=== PATIENT | male | born 1960 | race Caucasian/White ===

== ENCOUNTER → 2016-09-24 | Outpatient (CLI) | payer BC ==
[2016-09-24 09:08] LABS: INR 2.5 (<1.1); Prothrombin Time 24.2 sec (9.0-12.0)
[2016-09-24 09:27] LABS: Anion Gap 10 mmol/L; Blood Urea Nitrogen 17 mg/dL (9-20); Calcium 9.1 mg/dL (8.4-10.2); Carbon Dioxide 28 mmol/L (22-30); Chloride 102 mmol/L (98-107); Cholesterol 178 mg/dL (<200); Glucose 95 mg/dL (74-99); HDL Cholesterol 56 mg/dL (40-60); Non-African American GFR(MDRD) >60 (>60 ml/min/1.73 sqM); Potassium 4.4 mmol/L (3.5-5.1); Sodium 140 mmol/L (137-145); Triglycerides 109 mg/dL (<150)
== END | disposition home or self-care (01) ==
LOC: LABWHC1 08:33
PROVIDERS: ATTEND Internal Medicine
DX: E87.8 Other disorders of electrolyte and fluid balance, not elsewhere classified (principal); E78.2 Mixed hyperlipidemia; D68.8 Other specified coagulation defects
CPT/HCPCS: 36415; 80048; 80061; 85610

== ENCOUNTER → 2017-04-01 | Outpatient (CLI) | payer BC ==
[2017-04-01 08:41] LABS: CH 31.1; CHCM 31.9; HCT 44.9 % (39.0-53.0); HDW 2.06; MCH 30.6 pg (25.0-35.0); MCHC 31.3 g/dL (31.0-37.0); MCV 97.8 fL (80.0-100.0); Mean Platelet Volume 7.8; RBC 4.59 m/uL (4.30-5.90); RDW 13.3 % (11.5-15.5); WBC 5.4 k/uL (3.8-10.6)
[2017-04-01 08:48] LABS: INR 2.4 (<1.2); Prothrombin Time 23.5 sec (9.0-12.0)
[2017-04-01 10:31] LABS: ALT 53 U/L (21-72); AST 36 U/L (17-59); Alkaline Phosphatase 51 U/L (38-126); Anion Gap 11 mmol/L; Blood Urea Nitrogen 14 mg/dL (9-20); Calcium 9.4 mg/dL (8.4-10.2); Carbon Dioxide 25 mmol/L (22-30); Chloride 103 mmol/L (98-107); Cholesterol 168 mg/dL (<200); Glucose 86 mg/dL (74-99); HDL Cholesterol 61 mg/dL (40-60); Non-African American GFR(MDRD) >60 (>60 ml/min/1.73 sqM); Potassium 4.5 mmol/L (3.5-5.1); Sodium 139 mmol/L (137-145); Total Bilirubin 0.7 mg/dL (0.2-1.3); Total Protein 6.9 g/dL (6.3-8.2)
[2017-04-01 11:00] LABS: Prostate Specific Antigen 0.47 ng/mL (0.00-4.00)
== END | disposition home or self-care (01) ==
LOC: LABWHC1 07:41
PROVIDERS: ATTEND Internal Medicine
DX: I48.0 Paroxysmal atrial fibrillation (principal); Z13.220 Encounter for screening for lipoid disorders; Z12.9 Encounter for screening for malignant neoplasm, site unspecified
CPT/HCPCS: 36415; 80053; 80061; 84153; 85027; 85610

== ENCOUNTER 2018-01-03 18:33 | Emergency (ER) | payer BC ==
[2018-01-03 18:44] VITALS: BP 136/79; PULSE 79; RESP 18; TEMP 98.4
--- NOTE | 2018-01-03 19:58 | XR ---
EXAMINATION TYPE: XR knee complete RT DATE OF EXAM: 01/03/2018 COMPARISON: NONE HISTORY: Knee pain TECHNIQUE: 3 views FINDINGS: There is some spurring of the patella. I see no fracture nor dislocation. There is mild spu rring of the femoral and tibial condyles. There is no sign of joint effusion. IMPRESSION: Hypertrophic spurring without significant joint space narrowing. No fracture.
--- NOTE | 2018-01-03 20:32 | US ---
EXAMINATION TYPE: US venous doppler duplex LE RT DATE OF EXAM: 01/03/2018 8:28 PM COMPARISON: NONE CLINICAL HISTORY: Pain/swelling/bruising. SIDE PERFORMED: TECHNIQUE: The lower extremity deep venous system is examined utilizing real time linear array sonog jake with graded compression, doppler sonography and color-flow sonography. VESSELS IMAGED: External Iliac Vein (EIV) Common Femoral Vein Deep Femoral Vein Greater Saphenous Vein * Femoral Vein Popliteal Vein Small Saphenous Vein * Proximal Calf Veins (* superficial vessels) Right Leg: IMPRESSION: Normal exam. No evidence of deep venous thrombosis in the right leg.
--- NOTE | 2018-01-03 20:35 | ED ---
Extremity Problem HPI - General Chief complaint: Extremity Problem,Nontraumatic Stated complaint: Leg Swelling, poss blood clot Time Seen by Provider: 01/03/18 19:22 Source: patient Mode of arrival: wheelchair Limitations: no limitations - History of Present Illness Initial comments: Thisis a 57 year male with PMH of previous CVA on coumadin and recent right knee scope who presents to the ED for right knee swelling and bruising. Pt is accompanied by his . Pt has a knee arthroscopy performed by Dr. Urbina last . The procedure went without complications. Pt has had mild knee pain and swelling since the surgery. However, today noticed new bruising on the medial aspect of the right knee and though that the right lower leg looked more swollen then the other. She was worried about possible blood clot. Pt contacted Dr. Urbina's office who recommended they come to the ER for further evaluation and with f/u in Dr. Santillan office tomorrow. They stated they would evaluate for knee effusion at that appointment and would aspirate if needed. Pt denies increasing pain, overlying erythema of the right knee, limited ROM, calf pain/tenderness, erythema of the calf, parathesieas, numbness, tingling, loss of sensation of the LE, fever, chills, chest pain, shortness of breathe. - Related Data Allergies Allergy/AdvReac Type Severity Reaction Status Date / Time No Known Allergies Allergy Verified 01/03/18 18:44 Review of Systems ROS Statement: Those systems with pertinent positive or pertinent negative responses have been documented in the HPI. ROS Other: All systems not noted in ROS Statement are negative. Constitutional: Denies: fever, chills Respiratory: Denies: cough, dyspnea, wheezes Cardiovascular: Denies: chest pain Gastrointestinal: Denies: abdominal pain, nausea, vomiting, diarrhea, constipation Genitourinary: Denies: urgency, dysuria, frequency Musculoskeletal: Reports: as per HPI, joint swelling, arthralgia. Denies: back pain Skin: Reports: as per HPI Neurological: Denies: headache, numbness, paresthesias, abnormal gait Past Medical History Past Medical History: CVA/TIA, Hypertension Additional Past Medical History / Comment(s): stroke 1993 History of Any Multi-Drug Resistant Organisms: None Reported Past Surgical History: Orthopedic Surgery Additional Past Surgical History / Comment(s): eye surgery 1994 Past Psychological History: Anxiety Smoking Status: Former smoker Past Alcohol Use History: Rare Past Drug Use History: None Reported General Exam - General Exam Comments Initial Comments: General: The patient is awake and alert, in no distress, and does not appear acutely ill or toxic. Eye: Pupils are equal, round and reactive to light, extra-ocular movements are intact. No nystagmus. There is normal conjunctiva bilaterally. No signs of icterus. Ears, nose, mouth and throat: There are moist mucous membranes and no oral lesions. Neck: The neck is supple, there is no tenderness or JVD. Cardiovascular: There is a regular rate and rhythm. No murmur, rub or gallop is appreciated. Respiratory: Lungs are clear to auscultation, respirations are non-labored, breath sounds are equal. No wheezes, stridor, rales, or rhonchi. Musculoskeletal: No erythema of the right knee joint, there is mild soft tissue swelling and 2 small incisions with no signs of surrounding erythema or drainage , there is ecchymosis of the medial right knee. There is small circular bruise to the posterior right thigh. There is mild righ LE edema, no tenderness to palpation of the calf. Mild tenderness to palpation of the knee joint. Pt is able to actively and passively range right knee with minimal discomfort. Pt has full sensation of the LE b/l equally. +2 DP pulses b/l equally. No coolness of the LE b/l. Compartment are soft and compressible.5/5 strenght of the knee joint , hip and ankle. No evidence of pitting edema. Neurological: A&O x 3. CN II-XII intact, There are no obvious motor or sensory deficits. Coordination appears grossly intact. Speech is normal. Skin: Skin is warm and dry and no rashes or lesions are noted. Psychiatric: Cooperative, appropriate mood & affect, normal judgment. Limitations: no limitations Course Vital Signs 01/03/18 18:36 Temperature 98.4 F Pulse Rate 79 Respiratory 18 Rate Blood Pressure 136/79 O2 Sat by Pulse 96 Oximetry Medical Decision Making - Medical Decision Making Xray of the right knee reveal no evidence of effusion, dislocation or acute fx. U/S doppler of the right LE revealed no DVT. Given pt history and physical exam findings including no minimal pain with ROM, no overlying erythema and pt being afebrile I have low suspicion for a septic joint. At this time I feel that the symptoms today are post-operative symptoms, that are commonly associated with knee athroscopy including knee swelling and ecchymosis. Given negative LE doppler U/S and because the pt is on coumadin I have low suspicion for DVT. Pt is to f/u with Dr. Jose swenson as scheduled and to return to the ER is symptoms change or worsen. The case was discussed in detail with Dr. Sierra who agrees with work-up and plan. Pt is stable for discharge. Disposition Clinical Impression: Pain and swelling of right knee Disposition: HOME SELF-CARE Condition: Good Instructions: Swollen Knee Joint (ED), Knee Pain (ED) Additional Instructions: Please follow-up with Dr. Urbina as discussed. Please follow-up with family doctor in the next 2 days of symptoms have not improved. Please return to emergency room if the symptoms increase or worsen or for any other concerns. Is patient prescribed a controlled substance at d/c from ED?: No Referrals: Daniel Lockwood MD [Primary Care Provider] - 1-2 days Time of Disposition: 20:35
== END 2018-01-03 20:57 | disposition home or self-care (01) ==
LOC: EC 18:33
DX: M79.89 Other specified soft tissue disorders (principal); S80.01XA Contusion of right knee, initial encounter; S70.11XA Contusion of right thigh, initial encounter; Z86.73 Personal history of transient ischemic attack (TIA), and cerebral infarction without residual deficits; Z87.891 Personal history of nicotine dependence; X58.XXXA Exposure to other specified factors, initial encounter
CPT/HCPCS: 99284

== ENCOUNTER → 2018-02-03 | Outpatient (CLI) | payer BC ==
[2018-02-03 08:50] LABS: INR 2.1 (<1.2); Prothrombin Time 19.3 sec (9.0-12.0)
== END | disposition home or self-care (01) ==
LOC: LABWHC1 08:09
PROVIDERS: ATTEND Internal Medicine
DX: D68.8 Other specified coagulation defects (principal)
CPT/HCPCS: 36415; 85610

== ENCOUNTER → 2018-04-14 | Outpatient (CLI) | payer BC ==
--- NOTE | 2018-04-14 09:28 | XR ---
EXAMINATION TYPE: XR chest 2V DATE OF EXAM: 04/14/2018 COMPARISON: 08/10/2011 HISTORY: Chest pain TECHNIQUE: Frontal and lateral views of the chest are obtained. FINDINGS: There is no focal air space opacity. No evidence for pneumothorax. No pleural effusion. The cardiac silhouette size is within normal limits. The osseous structures are grossly intact. IMPRESSION: 1. No acute cardiopulmonary process.
[2018-04-14 09:29] LABS: HCT 46.8 % (39.0-53.0); HGB 14.8 gm/dL (13.0-17.5); MCH 29.6 pg (25.0-35.0); MCHC 31.5 g/dL (31.0-37.0); MCV 93.8 fL (80.0-100.0); Mean Platelet Volume 7.7; Platelet Count 393 k/uL (150-450); RBC 4.99 m/uL (4.30-5.90); RDW 13.4 % (11.5-15.5); WBC 10.9 k/uL (3.8-10.6)
[2018-04-14 09:33] LABS: INR 1.4 (<1.2); Prothrombin Time 13.4 sec (9.0-12.0)
[2018-04-14 17:32] LABS: ALT 28 U/L (10-49); AST 30 U/L (14-35); Alkaline Phosphatase 59 U/L (41-126); Calcium 9.6 mg/dL (8.7-10.3); Chloride 104 mmol/L (96-109); Cholesterol 167 mg/dL (0-200); Globulin 2.3 g/dL (2.1-3.7); Glucose 87 mg/dL (70-110); Potassium 5.4 mmol/L (3.5-5.5); Sodium 140 mmol/L (135-145); Total Bilirubin 0.9 mg/dL (0.3-1.2); Total Protein 6.9 g/dL (6.2-8.2); Triglycerides <50.0 mg/dL (0.0-149.0); VLDL Calculation 9.98 mg/dL (5.00-40.00)
[2018-04-14 17:40] LABS: Prostate Specific Antigen 0.9 ng/mL (0.0-4.5)
== END ==
LOC: LABWHC1 08:28
PROVIDERS: ATTEND Internal Medicine
DX: R05 Cough (principal); E87.5 Hyperkalemia; E78.49 Other hyperlipidemia; R53.83 Other fatigue; D68.8 Other specified coagulation defects; N40.0 Benign prostatic hyperplasia without lower urinary tract symptoms
CPT/HCPCS: 36415; 71046; 80053; 80061; 84153; 85027; 85610

== ENCOUNTER → 2019-04-27 | Outpatient (CLI) | payer BC ==
[2019-04-27 09:54] LABS: Basophils # (A) 0.1 k/uL (0-0.2); Basophils % (A) 1 %; Eosinophils # (A) 0.3 k/uL (0-0.7); Eosinophils % (A) 5 %; HCT 46.6 % (39.0-53.0); HGB 14.8 gm/dL (13.0-17.5); Lymphocytes # (A) 1.5 k/uL (1.0-4.8); Lymphocytes % (A) 25 %; MCH 29.5 pg (25.0-35.0); MCHC 31.8 g/dL (31.0-37.0); MCV 92.8 fL (80.0-100.0); Mean Platelet Volume 7.6; Monocytes # (A) 0.4 k/uL (0-1.0); Monocytes % (A) 6 %; Neutrophils # (A) 3.7 k/uL (1.3-7.7); Neutrophils % (A) 61 %; Platelet Count 308 k/uL (150-450); RBC 5.02 m/uL (4.30-5.90); RDW 14.1 % (11.5-15.5); WBC 5.9 k/uL (3.8-10.6)
[2019-04-27 10:06] LABS: INR 2.6 (<1.2); Prothrombin Time 25.1 sec (9.0-12.0)
== END | disposition home or self-care (01) ==
LOC: LABWHC1 09:03
PROVIDERS: ATTEND Nurse Practitioner Family
DX: I10 Essential (primary) hypertension (principal); D68.8 Other specified coagulation defects; E78.2 Mixed hyperlipidemia; R53.83 Other fatigue; Q24.8 Other specified congenital malformations of heart
CPT/HCPCS: 36415; 82306; 84153; 84443; 85025; 85610

== ENCOUNTER → 2020-05-22 | Outpatient (CLI) | payer BC ==
[2020-05-22 09:26] LABS: Basophils % (A) 1 %; Eosinophils # (A) 0.2 k/uL (0-0.7); Eosinophils % (A) 4 %; HCT 45.9 % (39.0-53.0); HGB 14.7 gm/dL (13.0-17.5); Lymphocytes # (A) 1.5 k/uL (1.0-4.8); Lymphocytes % (A) 27 %; MCHC 32.1 g/dL (31.0-37.0); MCV 93.4 fL (80.0-100.0); Mean Platelet Volume 8.9; Monocytes # (A) 0.4 k/uL (0-1.0); Monocytes % (A) 7 %; Neutrophils # (A) 3.3 k/uL (1.3-7.7); Neutrophils % (A) 59 %; Platelet Count 283 k/uL (150-450); RBC 4.91 m/uL (4.30-5.90); RDW 13.5 % (11.5-15.5); WBC 5.6 k/uL (3.8-10.6)
[2020-05-22 16:30] LABS: Chol/HDL Ratio 2.89
[2020-05-22 16:31] LABS: African American GFR (CKD) 93.1 (60.0-200.0); Albumin 4.3 g/dL (3.80-4.90); Albumin/Globulin Ratio 1.87 (1.60-3.17); Anion Gap 8.9 mmol/L (4.00-12.00); Calcium 9.2 mg/dL (8.7-10.3); Carbon Dioxide 27.1 mmol/L (21.6-31.8); Globulin 2.3 g/dL (1.6-3.3); Non-African American GFR(CKD) 80.3 (60.0-200.0); Potassium 4.8 mmol/L (3.5-5.5); Total Bilirubin 0.6 mg/dL (0.3-1.2); Total Protein 6.6 g/dL (6.2-8.2)
[2020-05-22 16:39] LABS: PSA Annual Screen 0.6 ng/mL (0.0-4.0)
== END | disposition home or self-care (01) ==
LOC: LABWHC1 08:31
PROVIDERS: ATTEND Nurse Practitioner Family
DX: I10 Essential (primary) hypertension (principal); E55.9 Vitamin D deficiency, unspecified; R53.83 Other fatigue; Z12.5 Encounter for screening for malignant neoplasm of prostate; E78.5 Hyperlipidemia, unspecified; E03.9 Hypothyroidism, unspecified
CPT/HCPCS: 80061; 80053; 84443; 85025; 82306; 36415; G0103

== ENCOUNTER → 2021-05-21 | Outpatient (CLI) | payer BC ==
--- NOTE | 2021-05-21 08:05 | XR ---
EXAMINATION TYPE: XR chest 2V DATE OF EXAM: 05/21/2021 COMPARISON: 04/14/2018 INDICATION: Wheezing TECHNIQUE: Single frontal view of the chest is obtained. FINDINGS: The heart size is normal. The pulmonary vasculature is normal. The lungs are clear. IMPRESSION: 1. No acute pulmonary process.
[2021-05-21 08:32] LABS: Appearance,Urine Clear (Clear); Bilirubin,Urine Negative (Negative); Blood,Urine Negative (Negative); Color,Urine Yellow; Glucose,Urine (UA) Negative (Negative); Ketones,Urine Negative (Negative); Leukocyte Esterase,Urine Negative (Negative); Nitrite,Urine Negative (Negative); PH, Urine 5.5 (5.0-8.0); Protein,Urine Negative (Negative); Specific Gravity,Urine 1.013 (1.001-1.035); Urobilinogen,Urine <2.0 mg/dL (<2.0)
[2021-05-21 10:58] LABS: Basophils # (A) 0.06 X 10*3/uL (0.00-0.10); Eosinophils % (A) 5.1 %; HCT 44.7 % (39.6-50.0); HGB 14.4 g/dL (13.0-17.0); Lymphocytes # (A) 1.48 X 10*3/uL (0.90-5.00); Lymphocytes % (A) 25.3 %; MCH 30.3 pg (27.0-32.0); MCHC 32.2 g/dL (32.0-37.0); MCV 94.1 fL (80.0-97.0); Mean Platelet Volume 11.4 fL (9.5-12.2); Monocytes # (A) 0.65 X 10*3/uL (0.20-1.00); Monocytes % (A) 11.1 %; Neutrophils # (A) 3.36 X 10*3/uL (1.80-7.70); Neutrophils % (A) 57.3 %; Platelet Count 292 X 10*3/uL (140-440); RBC 4.75 X 10*6/uL (4.40-5.60); RDW 13.6 % (11.5-14.5); WBC 5.86 X 10*3/uL (4.50-10.00)
[2021-05-21 11:36] LABS: ALT 30 U/L (10-49); AST 27 U/L (14-35); African American GFR (CKD) 90.2 (60.0-200.0); Albumin 4.4 g/dL (3.8-4.9); Albumin/Globulin Ratio 1.91 (1.60-3.17); Alkaline Phosphatase 61 U/L (41-126); BUN/Creat Ratio 18.63 Ratio (12.00-20.00); Calcium 9.3 mg/dL (8.7-10.3); Carbon Dioxide 26.5 mmol/L (20.0-27.5); Chloride 104 mmol/L (96-109); Chol/HDL Ratio 3.25 Ratio; Globulin 2.3 g/dL (1.6-3.3); Glucose 98 mg/dL (70-110); LDL Cholesterol,Calculated 102.1 mg/dL (0.0-131.0); Non-African American GFR(CKD) 77.9 (60.0-200.0); Sodium 139 mmol/L (135-145); Total Protein 6.6 g/dL (6.2-8.2); VLDL Calculation 14.94 mg/dL (5.00-40.00)
[2021-05-21 11:47] LABS: INR 2.65 (0.90-1.11); Prothrombin Time 28.6 sec (9.9-11.9)
== END | disposition home or self-care (01) ==
LOC: LABWHC1 07:18
PROVIDERS: ATTEND Family Medicine
DX: Z00.00 Encounter for general adult medical examination without abnormal findings (principal); I10 Essential (primary) hypertension; I63.9 Cerebral infarction, unspecified; E78.5 Hyperlipidemia, unspecified; R06.2 Wheezing; Z79.01 Long term (current) use of anticoagulants
CPT/HCPCS: 80061; 80053; 84443; 85025; 85610; 81003; 83036; 71046; 36415; G0103

== ENCOUNTER 2021-08-17 10:25 | Emergency (ER) | payer BC ==
[2021-08-17 10:39] VITALS: RESP 18; TEMP 98
--- NOTE | 2021-08-17 11:11 | ED ---
General Adult HPI - General Chief complaint: Anxiety Stated complaint: Mental Health Time Seen by Provider: 08/17/21 10:40 Source: patient Mode of arrival: ambulatory Limitations: no limitations - History of Present Illness Initial comments: This 61-year-old male with past medical history of CVA in 1993 presents emergency department for psychiatric evaluation after being sent by his primary care provider. in the room is tearful during history. states since CVA in 1993 patient has had episodes of anxiety and paranoia a couple times a year. Patient began seeing a psychiatrist and a psychotherapist about 20 years ago and was placed on Seroquel, Paxil and clonazepam. Patient only saw the psychiatrist and psychotherapist for a total of one year and his primary care provider has been prescribing the same medications and seemed doses since. in room states he has a couple episodes of paranoia/delusions each year, however he's been having them more frequently. states these episodes always begin with patient thinking she is on a phone call with "a boyfriend in an cheating on him and he is going to lose me. He states he is going to divorce me and states he hates me." states that these episodes can last for a couple of hours before she can "shaken out of it." in room states he had one of these episodes this morning and also had one of these episodes in March. She states that when she called his primary care provider she told them to come to the emergency department to get set up with a new therapist in case he needs some medication dose changes. states patient does occasionally smoke marijuana to help relax him. Patient denies any chest pain, shortness of breath, abdominal pain, nausea, vomiting, headache, change in vision, blurred vision, headedness, dizziness, weakness. Patient denies any suicidal or homicidal ideation. Patient denies any auditory or visual hallucinations. Patient does have left-sided weakness and does use a cane, weakness without any changes, patient had baseline. - Related Data Home Medications Medication Instructions Recorded Confirmed Cholecalciferol (Vitamin D3) 75 mcg PO DAILY 08/17/21 08/17/21 [Vitamin D3 (3000 Iu)] Famotidine [Pepcid] 20 mg PO BID PRN 08/17/21 08/17/21 Lovastatin [Mevacor] 40 mg PO PC-LUNCH 08/17/21 08/17/21 Multivitamins, Thera [Multivitamin 1 tab PO DAILY 08/17/21 08/17/21 (formulary)] PARoxetine HCL [Paxil] 40 mg PO HS 08/17/21 08/17/21 QUEtiapine [SEROquel] 25 mg PO HS 08/17/21 08/17/21 Warfarin [Coumadin] 10 mg PO MOTUTHFRSA 08/17/21 08/17/21 Warfarin [Coumadin] 15 mg PO SUWE 08/17/21 08/17/21 clonazePAM 0.5 mg PO TID 08/17/21 08/17/21 lisinopriL [Zestril] 5 mg PO DAILY 08/17/21 08/17/21 Allergies Allergy/AdvReac Type Severity Reaction Status Date / Time No Known Allergies Allergy Verified 08/17/21 12:11 Review of Systems ROS Statement: Those systems with pertinent positive or pertinent negative responses have been documented in the HPI. ROS Other: All systems not noted in ROS Statement are negative. Past Medical History Past Medical History: CVA/TIA, Hypertension Additional Past Medical History / Comment(s): stroke 1993 History of Any Multi-Drug Resistant Organisms: None Reported Past Surgical History: Orthopedic Surgery Additional Past Surgical History / Comment(s): eye surgery 1994 Past Psychological History: Anxiety Smoking Status: Never smoker Past Alcohol Use History: Rare Past Drug Use History: None Reported General Exam Limitations: no limitations General appearance: alert, in no apparent distress Head exam: Present: atraumatic, normocephalic, normal inspection Eye exam: Present: PERRL (left eye). Absent: normal appearance (Patient right eye hypertropia that states has been there since his CVA 1992, no changes), scleral icterus, conjunctival injection, periorbital swelling, periorbital tenderness ENT exam: Present: mucous membranes moist Neck exam: Present: normal inspection, full ROM. Absent: tenderness, me ningismus, lymphadenopathy Respiratory exam: Present: normal lung sounds bilaterally. Absent: respiratory distress, wheezes, rales, rhonchi, stridor Cardiovascular Exam: Present: regular rate, normal rhythm, normal heart sounds. Absent: systolic murmur, diastolic murmur, rubs, gallop, clicks GI/Abdominal exam: Present: soft, normal bowel sounds. Absent: distended, tenderness, guarding, rebound, rigid Extremities exam: Present: full ROM, other (Patient does use cane for weakness after CVA, no increased weakness since 1993. Left-sided weakness with no change from 1994 CVA) Back exam: Present: normal inspection, full ROM. Absent: CVA tenderness (R), CVA tenderness (L), paraspinal tenderness, vertebral tenderness Neurological exam: Present: alert, oriented X3, CN II-XII intact. Absent: normal gait (Patient does use a cane since his CVA) Psychiatric exam: Present: normal affect, normal mood Skin exam: Present: warm, dry, intact, normal color. Absent: rash Course Vital Signs 08/17/21 08/17/21 10:33 11:15 Temperature 98 F Pulse Rate 78 82 Respiratory 18 18 Rate Blood Pressure 140/104 136/96 O2 Sat by Pulse 97 97 Oximetry Medical Decision Making - Medical Decision Making This 61-year-old male presents emergency department for psychiatric evaluation. Patient was assessed by EPS nurse Rita after I did medically clear patient, her and patient agreed for him to be followed up outpatient. Patient was given referral information to outpatient psychiatrist and therapist. states she is scheduling an appointment with his primary care provider in the next couple of days to discuss possible medication dose adjustment or patient to be seen by psychiatrist. Patient and state that they believe patient could benefits from some outpatient therapy. Patient denies any suicidal or homicidal ideation. Patient does have left-sided weakness and does use a cane, weakness without any changes, patient had baseline. Patient and both state they are very appreciative for these resources given. Patient and both verbally agree to plan. Strict return precautions were discussed. Patient sent home in stable condition. Case discussed with my attending, Dr. Figueroa. - Lab Data Lab Results 08/17/21 Range/Units 11:29 Urine Opiates Screen Not Detected (NotDetected) Ur Oxycodone Screen Not Detected (NotDetected) Urine Methadone Screen Not Detected (NotDetected) Ur Propoxyphene Screen Not Detected (NotDetected) Ur Barbiturates Screen Not Detected (NotDetected) U Tricyclic Antidepress Not Detected (NotDetected) Ur Phencyclidine Scrn Not Detected (NotDetected) Ur Amphetamines Screen Not Detected (NotDetected) U Methamphetamines Scrn Not Detected (NotDetected) U Benzodiazepines Scrn Not Detected (NotDetected) Urine Cocaine Screen Not Detected (NotDetected) U Marijuana (THC) Screen Not Detected (NotDetected) Disposition Clinical Impression: Mood changes, Paranoia, Anxiety Disposition: HOME SELF-CARE Condition: Stable Instructions (If sedation given, give patient instructions): Generalized Anxiety Disorder (ED) Additional Instructions: Please follow-up with your primary care provider in next 1-2 days. Return to the emergency department with any new, worsening, or concerning symptoms. Please use resources given today to schedule an set up outpatient therapy/psychiatry evaluation. Is patient prescribed a controlled substance at d/c from ED?: No Referrals: Daryn Saldivar MD [Primary Care Provider] - 1-2 days Time of Disposition: 15:59
[2021-08-17 12:00] LABS: Amphetamine Screen,Urine Not Detected (NotDetected); Barbiturate Screen,Urine Not Detected (NotDetected); Benzodiazepines Screen,Urine Not Detected (NotDetected); Cocaine Screen,Urine Not Detected (NotDetected); Methadone Screen, Urine Not Detected (NotDetected); Opiate Screen,Urine Not Detected (NotDetected); Oxycodone Screen, Urine Not Detected (NotDetected); Phencyclidine Screen,Urine Not Detected (NotDetected); Tricyclic Antidepressant,Urine Not Detected (NotDetected); Urn Cannabinoid Scrn Not Detected (NotDetected)
[2021-08-17 16:06] VITALS: BP 145/79; PULSE 79
== END 2021-08-17 16:06 | disposition home or self-care (01) ==
LOC: EC 10:25
DX: F39 Unspecified mood [affective] disorder (principal); F41.9 Anxiety disorder, unspecified; F22 Delusional disorders; I10 Essential (primary) hypertension; Z79.01 Long term (current) use of anticoagulants; Z79.899 Other long term (current) drug therapy
CPT/HCPCS: 80306; 82075; 99283